=== PATIENT | male | born 1945 | race Caucasian/White ===

== ENCOUNTER 2025-01-24 11:36 | Emergency (ER) | payer MEDICARE, MEDICAID ==
[~2025-01-24] VITALS: Ht 172.7 cm; Wt 106.0 kg
--- NOTE | 2025-01-24 13:10 | Physician Documentation ---
History of Present Illness ~ Chief Complaint: Allergic Reaction Stated Complaint: ALLERGIC REACTION Time Seen by MD: 11:39 HPI 79-year-old male [facility]. According to the report patient ingested one peanut this afternoon and developed allergic symptoms. He recieved Benadryl 50 mg im. No longer experiencing any allergic symptoms. Patient is sleeping in his hospital [facility] undisturbed Medication Reconciliation Allergies: Coded Allergies: Sulfa (Sulfonamide Antibiotics) (Unverified Allergy, Unknown, NOSE BLEEDS, 01/24/25) Uncoded Allergies: PEANUTS (Adverse Reaction, Unknown, ANAPHYLAXIS, 01/24/25) Review of Systems All Other Systems at this time: Reviewed and Negative ROS As stated above in the HPI, otherwise all systems are reviewed and negative. Physical Exam Vital Signs: Temperature: 98.0, Source: Oral, Heart Rate: 79, Respiratory Rate: 18, BP: 125/65, Pulse Oximetry: 96, Weight: 106.000 Physical Exam General: Alert, no apparent distress. Respiratory: Lungs clear, no respiratory distress. Cardiovascular: Regular rate and rhythm, no murmurs. Gastrointestinal: Soft, nontender, nondistended. Bowels sounds present. Neurologic: Oriented x4. Psychiatric: Normal mood and affect. Skin: Normal color, warm and dry. No edema, no ecchymosis. Progress Results/Orders Results/Orders Vital Signs 01/24/25 11:44 Temp 98.0 Pulse 79 Resp 18 B/P (MAP) 125/65 Pulse Ox 96 Departure Disposition: HOME / SELF CARE / HOMELESS Impression: Primary Impression: Acute allergic reaction Condition: Stable Discharge Instructions: Anaphylactic Reaction, Adult, [id number] Referrals: NO PRIMARY CARE PROVIDER (PCP) Signature Scribe Signature: v Attestation: Scribed for Sriram Lara Skin [employer]her by Sriram Birch NP . 01/24/25 13:10 SRIRAM LARA NP Jan 24, 2025 13:10
[2025-01-24 16:51] VITALS: BP 129/64; PULSE 70; RESP 15; TEMP 98; O2SAT 95
== END 2025-01-24 16:53 | disposition home or self-care (01) ==
LOC: ER 11:36
DX: T78.40XA Allergy, unspecified, initial encounter (principal); Z88.2 Allergy status to sulfonamides; X58.XXXA Exposure to other specified factors, initial encounter
CPT/HCPCS: 99284